=== PATIENT | male | born 1935 | race Caucasian/White ===

== ENCOUNTER 2022-03-12 11:33 | Observation (INO) ==
[2022-03-12] MEDS ORDERED: IOPAMIDOL 100 ML BOTTLE IV ONE (11:34)
--- NOTE | 2022-03-12 12:12 | Emergency Department Note ---
Altered Mental Status HPI General Chief Complaint: Altered Mental Status Stated Complaint: altered LOC and dizziness Time Seen by Provider: 03/12/22 11:37 Source: family and EMS Mode of arrival: EMS History of Present Illness HPI Narrative: Narrative: Patient presents to the emergency department with confusion, aphasia. Per family the patient woke up this morning and fell in the bathroom floor. His went to check on him and he stated that he was dizzy. She is unsure if he was in his normal state when he woke up, she states that he was last known well around 10 PM last night. She heard him fall on the ground around 9 AM. He was initially able to verbalize complaints and speak but it got to the point where he was not able to verbalize and act confused whenever questions were asked. Patient is not on any anticoagulation he does have a history of rectal cancer and chronic anemia. He is not on any treatment for his rectal cancer and is limited interventions. Related Data Home Medications Medication Instructions Recorded Confirmed calcium carbonate 600 mg-vitamin 2 cap PO 2XD 10/28/14 03/12/22 D3 10 mcg (400 unit) capsule pro-80 vitamin BID 10/28/14 11/17/21 ascorbic acid (vitamin C) 500 mg 500 mg PO Q12H 01/19/15 03/12/22 capsule,extended release cholecalciferol (vitamin D3) 25 1,000 unit PO QDAY 04/18/19 03/12/22 mcg (1,000 unit) capsule Previous Rx's Medication Instructions Recorded Wheeled walker #1 ea 06/08/21 ferrous sulfate 324 mg (65 mg 324 mg PO BID 90 days #180 tabs 01/06/22 iron) tablet,delayed release tamsulosin 0.4 mg capsule 0.4 mg PO QHS 30 days #90 caps 01/06/22 Allergies Allergy/AdvReac Type Severity Reaction Status Date / Time metronidazole Allergy Unknown Diarrhea Verified 03/12/22 11:34 moxifloxacin [From Avelox] Allergy Unknown Cramping Verified 03/12/22 11:34 of the Muscles Review of Systems ROS ROS Narrative: Narrative: Limitations: ROS unobtainable due to patients medical condition PFSH Narrative Patient History Narrative: Narrative: Medical/Surgical/Family History All Active Problems (Updated 03/12/22 @ 13:58 by Get Jiménez MD) Stroke-like symptoms (Acute) Aphasia (Acute) Medicare annual wellness visit, initial (Acute) 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 chronic kidney disease (Chronic) Chronic kidney disease (CKD) stage G3a/A1, moderately decreased glomerular filtration rate (GFR) between 45-59 mL/min/1.73 square meter and albuminuria creatinine ratio less than 30 mg/g (Chronic) Iliac artery aneurysm (Chronic) Colon cancer (Chronic) Medicare annual wellness visit, subsequent (Acute) Concussion with loss of consciousness (Acute) Laceration (Acute) Edema (Chronic) Hx of tonsillectomy (Chronic) Hx of colonoscopy (Chronic ~12/04/19) Hx of adenoidectomy (Chronic) Vitamin D deficiency (Chronic) Urethral stricture (Chronic) Seborrheic keratosis (Chronic) Rheumatic fever (Chronic) Peripheral neuropathy (Chronic) Pain in joint, ankle and foot (Chronic) Ocular migraine (Chronic) Migraine (Chronic) Hypoglycemia (Chronic) Hypocalcemia (Chronic) Hyperlipidemia (Chronic) Hematuria (Chronic) Gingivitis (Chronic) Diverticulitis of colon (Chronic) Cerumen impaction (Chronic) BPH with urinary obstruction (Chronic) Anemia (Chronic) Actinic keratosis (Chronic) Medical History Actinic keratosis 07/31/2012 Anemia chronic, mild Tsat 40% above threshold for VIN BPH with urinary obstruction 09/05/2012 Cerumen impaction Colon cancer Rectal cancer Diverticulitis of colon Edema Gingivitis Hematuria 07/31/2012 Hyperlipidemia Hypocalcemia Hypoglycemia 08/08/2012 Iliac artery aneurysm Medicare annual wellness visit, initial Medicare annual wellness visit, subsequent Migraine Ocular migraine "forever", no headache Pain in joint, ankle and foot Peripheral neuropathy Rheumatic fever 1949 Seborrheic keratosis Urethral stricture 09/05/2012 Vitamin D deficiency Surgical History Hx of adenoidectomy as a child Hx of colonoscopy (~12/04/19) 03/12/2008 Microscopic diagnosis; specimen A: colon, ascending polyp, polypectomy: Hyperplastic polyp. Specimen B: Colon, cecum polyps, polypectomy: portions of adenomatous polyp (3). Inflamed hyperplastic polyp (1). Specimen C: Colon Transverse Polyps, polypectomy: portions of adenomatous polyp (2) Hx of tonsillectomy as a child Family History father Chronic Kidney Disease Social History Smoking Status: Never smoker Alcohol Intake Frequency: holiday/special occasion only Substance Use: does not use Exam Narrative Narrative: Narrative: Vital signs noted General: Awake. Alert. No distress. HEENT: NCAT PERRL EOMI. No conjunctivitis. Membranes moist. Neck: Supple, trachea midline Cardiovascular: RRR. No murmur. No rubs. No gallops. Respiratory: No respiratory distress. Breath sounds equal. Lungs clear. Gastrointestinal: Soft. No tenderness Musculoskeletal: No pain. No soft tissue swelling. Good ROM. No signs injury Skin: Warm. Dry. No rash Neurologic: Patient appears to be alert, he does not answer any questions appropriately when asked what his name is he just looks blankly, he has 3+ strength in his bilateral lower extremities no obvious facial droop or gaze preference, when patient's arms are held up there does not appear to be any asymmetric pronator drift but the patient does not appear to follow simple commands Course Vital Signs Vital signs: Vital Signs Temperature 97.2 F 03/12/22 11:45 Pulse Rate 76 03/12/22 11:45 Respiratory Rate 16 03/12/22 11:45 Blood Pressure 126/68 03/12/22 11:45 Pulse Oximetry (%) 95 03/12/22 11:45 Oxygen Delivery Method 03/12/22 11:45 Temperature 99 F 03/12/22 22:32 Pulse Rate 69 03/12/22 22:32 Respiratory Rate 18 03/12/22 22:32 Blood Pressure 132/71 03/12/22 22:32 Pulse Oximetry (%) 94 03/12/22 22:32 Oxygen Delivery Method 03/12/22 22:32 MDM MDM Narrative Medical decision making narrative: Narrative: Patient presents to the emergency department with altered mental status given the onset of his symptoms CVA was the first diagnosis in the differential. Upon asking the family the patient is not in the window for tPA. CT scan did not show an obvious territorial infarct or hemorrhage. I did consult with Dr. Edgar of teleneurology she agrees that the patient is not in the window for tPA. Patient's blood pressure was within normal parameters. CTA of the head and neck was also without explanatory findings. The patient did not appear to have any focalizing motor symptoms mostly aphasia. After further discussion with the family offering potential MRI and additional blood work they would like the patient to be placed on hospice. The patient is already DNR comfort measures only. They state that although he did have a drastic change in his mentation today he has had a steady decline for 2 years he is not being treated for his rectal cancer. The family does not want to look for reversible infectious causes of his symptoms or other sources. Other than CVA the consideration for postictal state was considered, polypharmacy or accidental ingestion, versus occult infection. Lab Data Result diagrams: 03/12/22 12:07 03/12/22 12:07 Labs: Lab Results 03/12/22 03/12/22 03/12/22 Range/Units 12:04 12:07 12:07 WBC 10.0 (4.5-11.0) K/mcL RBC 4.56 L (4.63-6.08) M/mcL Hgb 12.3 L (13.7-17.5) g/dL Hct 38.7 L (40.1-51.0) % MCV 84.9 (80.0-100.0) fL MCH 27.0 (26.0-34.0) pg MCHC 31.8 (31.0-36.0) g/dL RDW 14.3 (11.5-14.5) % Plt Count 246 (140-440) K/mcL MPV 9.2 (8.8-12.5) fL Immature Gran % (Auto) 0.3 (0.0-0.5) % Neut % (Auto) 54.2 (38.0-78.0) % Lymph % (Auto) 35.2 (15.5-49.0) % [place] % (Auto) 7.4 (1.0-12.0) % Eos % (Auto) 2.4 (0.0-7.0) % Baso % (Auto) 0.5 (0.0-2.0) % Lymph # (Auto) 3.52 (1.50-4.80) K/mcL [place] # (Auto) 0.74 (0.10-0.90) K/mcL Eos # (Auto) 0.24 (0.00-0.70) K/mcL Baso # (Auto) 0.05 (0.00-0.30) K/mcL Immature Gran # 0.03 (0.00-0.05) K/mcl Absolute Neutrophils 5.43 (1.80-8.00) K/mcL PT (11.9-14.5) sec INR (0.9-1.1) APTT 32.9 (20.0-37.0) sec Sodium (133-145) mmol/L Potassium (3.3-5.1) mmol/L Chloride (96-108) mmol/L Carbon Dioxide (22-30) mmol/L Anion Gap (8.0-16.0) BUN (8-23) mg/dL Creatinine (0.7-1.2) mg/dL GFR Calculation Glucose (70-105) mg/dL Uric Acid (2.5-8.0) mg/dL Calcium (8.6-10.4) mg/dL Phosphorus (2.5-4.5) mg/dL Magnesium (1.6-2.5) mg/dL Total Bilirubin (0.1-1.0) mg/dL Direct Bilirubin (<0.3) mg/dL GGT (8-61) U/L AST (<40) U/L ALT (<40) U/L Alkaline Phosphatase (39-117) U/L Lactate Dehydrogenase (135-225) U/L Total Protein (5.9-8.4) gm/dL Albumin (3.2-5.2) gm/dL Globulin (2.2-3.7) gm/dL Albumin/Globulin Ratio (1.0-2.3) Triglycerides (<150) mg/dL POC Troponin I < 0.02 (0.00-0.08) 03/12/22 03/12/22 03/12/22 Range/Units 12:07 12:07 12:07 WBC (4.5-11.0) K/mcL RBC (4.63-6.08) M/mcL Hgb (13.7-17.5) g/dL Hct (40.1-51.0) % MCV (80.0-100.0) fL MCH (26.0-34.0) pg MCHC (31.0-36.0) g/dL RDW (11.5-14.5) % Plt Count (140-440) K/mcL MPV (8.8-12.5) fL Immature Gran % (Auto) (0.0-0.5) % Neut % (Auto) (38.0-78.0) % Lymph % (Auto) (15.5-49.0) % [place] % (Auto) (1.0-12.0) % Eos % (Auto) (0.0-7.0) % Baso % (Auto) (0.0-2.0) % Lymph # (Auto) (1.50-4.80) K/mcL [place] # (Auto) (0.10-0.90) K/mcL Eos # (Auto) (0.00-0.70) K/mcL Baso # (Auto) (0.00-0.30) K/mcL Immature Gran # (0.00-0.05) K/mcl Absolute Neutrophils (1.80-8.00) K/mcL PT 13.2 (11.9-14.5) sec INR 1.0 (0.9-1.1) APTT (20.0-37.0) sec Sodium 139 (133-145) mmol/L Potassium 3.8 (3.3-5.1) mmol/L Chloride 107 (96-108) mmol/L Carbon Dioxide 20 L (22-30) mmol/L Anion Gap 12.0 (8.0-16.0) BUN 15 (8-23) mg/dL Creatinine 1.3 H (0.7-1.2) mg/dL GFR Calculation 49 Glucose 108 H (70-105) mg/dL Uric Acid 5.3 (2.5-8.0) mg/dL Calcium 8.8 (8.6-10.4) mg/dL Phosphorus 2.4 L (2.5-4.5) mg/dL Magnesium 2.3 (1.6-2.5) mg/dL Total Bilirubin 0.8 0.7 (0.1-1.0) mg/dL Direct Bilirubin 0.2 < 0.2 (<0.3) mg/dL GGT 18 (8-61) U/L AST 19 20 (<40) U/L ALT 9 9 (<40) U/L Alkaline Phosphatase 96 99 (39-117) U/L Lactate Dehydrogenase 253 H (135-225) U/L Total Protein 6.7 6.6 (5.9-8.4) gm/dL Albumin 3.5 3.4 (3.2-5.2) gm/dL Globulin 3.2 3.2 (2.2-3.7) gm/dL Albumin/Globulin Ratio 1.1 (1.0-2.3) Triglycerides 95 (<150) mg/dL POC Troponin I (0.00-0.08) EKG Data EKG #1: EKG attestation: Yes I reviewed and interpreted this EKG., Yes There are no EKG findings of acute coronary syndrome and Yes This EKG will be read by convention planner EKG results narrative: EKG per my interpretation shows a sinus rhythm there is multiple PVCs normal axis no evidence of acute ischemia Discharge Plan Patient/Caregiver Discharge Instructions Pt seen by JACK SPINNER/PA only: No Clinical Impression: Stroke-like symptoms, Aphasia Activity: resume usual activities as tolerated Patient Disposition: Xfer As Outpt/Obs ([facility]) Condition: Serious Discharge Date/Time: 03/12/22 15:45
[2022-03-12 12:45] LABS: Basophils # (Auto) 0.05 K/mcL (0.00-0.30); Basophils % (Auto) 0.5 % (0.0-2.0); Eosinophils # (Auto) 0.24 K/mcL (0.00-0.70); Eosinophils % (Auto) 2.4 % (0.0-7.0); Hematocrit 38.7 % (40.1-51.0); Hemoglobin 12.3 g/dL (13.7-17.5); Lymphocytes # (Auto) 3.52 K/mcL (1.50-4.80); Lymphocytes % (Auto) 35.2 % (15.5-49.0); Mean Cell Volume 84.9 fL (80.0-100.0); Mean Corpuscular HGB Conc 31.8 g/dL (31.0-36.0); Mean Platelet Volume 9.2 fL (8.8-12.5); Monocytes # (Auto) 0.74 K/mcL (0.10-0.90); Monocytes % (Auto) 7.4 % (1.0-12.0); Neutrophils % (Auto) 54.2 % (38.0-78.0); Platelet Count 246 K/mcL (140-440); RBC 4.56 M/mcL (4.63-6.08); Red Cell Distribution Width 14.3 % (11.5-14.5)
[2022-03-12 13:02] LABS: ALT/SGPT 9 U/L (<40); AST/SGOT 19 U/L (<40); Albumin 3.5 gm/dL (3.2-5.2); Alkaline Phosphatase 96 U/L (39-117); Bilirubin,Direct 0.2 mg/dL (<0.3); Bilirubin,Total 0.8 mg/dL (0.1-1.0); Globulin 3.2 gm/dL (2.2-3.7)
[2022-03-12 13:23] LABS: Prothrombin Time 13.2 sec (11.9-14.5)
--- NOTE | 2022-03-12 13:44 | Cat Scan Report ---
CLINICAL INFORMATION: Aphasia code stroke COMPARISON: None. TECHNIQUE: 80 cc of Isovue-370 were injected intravenously , and using SmartPrep to maximize cerebral arterial opacification, 0.625 mm helical slices were obtained from the skull base through the cerebral vertex. Following reconstruction , sagittal, coronal and axial reformatted images were processed and reviewed at multiple windows and levels. 3D volume rendered and MIP images were acquired at a independent workstation. The exam was performed using radiation dose optimization techniques including, but not limited to, automated exposure control, adjustment of the mA and/or kV according to patient size and use of iterative reconstruction technique. FINDINGS: The intracranial internal carotid, vertebral, basilar, anterior, middle and posterior cerebral arteries and their branches are well-opacified and normal in contour and caliber without significant stenosis, occlusion or other pathology. Superficial/deep cerebral veins and deep venous sinuses are widely patent IMPRESSION: Normal exam Interpreted and Authenticated by: Aashish Scott 03/12/22
--- NOTE | 2022-03-12 13:45 | Cat Scan Report ---
CLINICAL INFORMATION: Neurological deficit acute stroke COMPARISON: 07/26/2018 TECHNIQUE: 2.5 mm helical slices were obtained in the skull base to vertex. Following reconstruction, axial reformatted images were reviewed at bone and parenchymal windows. The exam was performed using radiation dose optimization techniques including, but not limited to, automated exposure control, adjustment of the mA and/or kV according to patient size and use of iterative reconstruction technique. FINDINGS: The ventricles, sulci, fissures, and cisterns are symmetrically enlarged compatible moderate age-related atrophy. No extra-axial fluid collections are identified. Mild patchy chronic ischemic changes, in the deep cerebral white matter, are expected for age. There is no hemorrhage, mass effect, or edema. Bone windows show no osseous abnormality. IMPRESSION: Moderate atrophy and chronic ischemic changes in the deep cerebral white matter-expected for age. No acute findings Interpreted and Authenticated by: Aashish Scott 03/12/22
--- NOTE | 2022-03-12 13:49 | Internal Med History&Physical ---
HPI History of Present Illness Patient information: Note initiated : 03/12/22 at 1:48 pm Service Date, if different from initiated Date: [] Patient: Jose Barker a 87 y/o M admitted on for altered LOC and dizziness. Chief Complaint: [] History of present illness: Mr. Barker is a 87 year old M Patient presents to the ED with confusion weakness speech abnormalities per family. Per family he was last known normal last night at 10 and yesterday was essentially unremarkable maybe was a bit weaker than usual. However he has been having increasing progressing weakness over time given his known invasive ductal carcinoma that is been progressing and they are not pursuing treatment. His heard him fall hard onto the toilet today and when she went into see him he was for stating he was dizzy and grabbed he became more confused and she says he developed garbled speech where not only was the wrong words that he also had a hard time saying them. That is progressed for most of the day since that time, however shortly before I was in there the family said he was starting to speak clearly again but then when I started examining him he was back to an aphasia presentation. Patient has a history of chronic kidney disease chronic anemia and invasive rectal adenocarcinoma that they are not pursuing treatment for as per them and a note written by Dr. Doyle in 2019. Initial stroke work-up was started. CTA imaging was unremarkable. EKG with sinus arrhythmia. CBC unremarkable and vital signs unremarkable including a normal blood pressure, chemistry pending. After further discussion between the ER physician and the family, the family would like no more further interventions or aggressive work-up and would like to transition to hospice. Family is unable to take the patient home at this time given his confusion and feeling like he would be unsafe at home. I confirm with the family and they would just like comfort care measures only. Review of systems: Unable to obtain given altered mental state. 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 chronic kidney disease (Chronic) Chronic kidney disease (CKD) stage G3a/A1, moderately decreased glomerular filtration rate (GFR) between 45-59 mL/min/1.73 square meter and albuminuria creatinine ratio less than 30 mg/g (Chronic) Iliac artery aneurysm (Chronic) Colon cancer (Chronic) Medicare annual wellness visit, subsequent (Acute) Concussion with loss of consciousness (Acute) Laceration (Acute) Edema (Chronic) Hx of tonsillectomy (Chronic) Hx of colonoscopy (Chronic ~12/04/19) Hx of adenoidectomy (Chronic) Vitamin D deficiency (Chronic) Urethral stricture (Chronic) Seborrheic keratosis (Chronic) Rheumatic fever (Chronic) Peripheral neuropathy (Chronic) Pain in joint, ankle and foot (Chronic) Ocular migraine (Chronic) Migraine (Chronic) Hypoglycemia (Chronic) Hypocalcemia (Chronic) Hyperlipidemia (Chronic) Hematuria (Chronic) Gingivitis (Chronic) Diverticulitis of colon (Chronic) Cerumen impaction (Chronic) BPH with urinary obstruction (Chronic) Anemia (Chronic) Actinic keratosis (Chronic) Medical History Actinic keratosis 07/31/2012 Anemia chronic, mild Tsat 40% above threshold for VIN BPH with urinary obstruction 09/05/2012 Cerumen impaction Colon cancer Rectal cancer Diverticulitis of colon Edema Gingivitis Hematuria 07/31/2012 Hyperlipidemia Hypocalcemia Hypoglycemia 08/08/2012 Iliac artery aneurysm Medicare annual wellness visit, initial Medicare annual wellness visit, subsequent Migraine Ocular migraine "forever", no headache Pain in joint, ankle and foot Peripheral neuropathy Rheumatic fever 1948 Seborrheic keratosis Urethral stricture 09/05/2012 Vitamin D deficiency Surgical History Hx of adenoidectomy as a child Hx of colonoscopy (~12/04/19) 03/12/2008 Microscopic diagnosis; specimen A: colon, ascending polyp, polypectomy: Hyperplastic polyp. Specimen B: Colon, cecum polyps, polypectomy: portions of adenomatous polyp (3). Inflamed hyperplastic polyp (1). 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 other: Children-4 eating out: 1-3 times/week physical activity: none smoking status: Never smoker alcohol intake frequency: holiday/special occasion only substance use type: does not use barron/mosque: Yarsani seatbelt use: always MEDS/ALLERGIES Home Medications and Allergies Home Medications Medication Instructions Recorded Confirmed Type calcium carbonate 600 mg-vitamin 2 cap PO QDAY 10/28/14 11/17/21 History D3 10 mcg (400 unit) capsule pro-80 vitamin PO BID 10/28/14 11/17/21 History ascorbic acid (vitamin C) 500 mg 500 mg PO Q12H 01/19/15 11/17/21 History capsule,extended release cholecalciferol (vitamin D3) 25 1,000 unit PO QDAY 04/18/19 11/17/21 History mcg (1,000 unit) capsule Wheeled walker #1 ea 06/08/21 11/17/21 Rx ferrous sulfate 324 mg (65 mg 324 mg PO BID 90 days #180 tabs 01/06/22 Rx iron) tablet,delayed release tamsulosin 0.4 mg capsule 0.4 mg PO QHS 30 days #90 caps 01/06/22 Rx Allergies Allergy/AdvReac Type Severity Reaction Status Date / Time metronidazole Allergy Unknown Diarrhea Verified 03/12/22 11:34 moxifloxacin [From Avelox] Allergy Unknown Cramping Verified 03/12/22 11:34 of the Muscles EXAM Constitutional Vitals: Temp Pulse Resp BP Pulse Ox O2 Del Method 97.2 F 69 20 128/71 98 03/12/22 11:45 03/12/22 13:09 03/12/22 13:09 03/12/22 13:02 03/12/22 13:09 03/12/22 11:59 Exam: General: Awake, No acute Distress Eyes/N/T: EOMI, PERRL, Head/Neck: neck supple, normocephalic atraumatic CV: RRR, No murmurs, normal s1/s2 Pulm: Clear b/l, no wheezing/rhonchi/rales Abd: soft, nontender, +BS x4 Ext: no clubbing/cyanosis/edema Neuro: Patient moves extremities spontaneously but does not follow commands, when speaking to him the only thing he says is "yep" and does not make eye contact with me skin: warm/dry DATA Data Completed and Pending Labs: Labs from last 24 hours 03/12/22 03/12/22 03/12/22 12:07 12:07 12:07 WBC RBC Hgb Hct MCV MCH MCHC RDW Plt Count MPV Immature Gran % (Auto) Neut % (Auto) Lymph % (Auto) [place] % (Auto) Eos % (Auto) Baso % (Auto) Lymph # (Auto) [place] # (Auto) Eos # (Auto) Baso # (Auto) Immature Gran # Absolute Neutrophils PT 13.2 INR 1.0 APTT 32.9 Total Bilirubin 0.8 Direct Bilirubin 0.2 AST 19 ALT 9 Alkaline Phosphatase 96 Total Protein 6.7 Albumin 3.5 Globulin 3.2 POC Troponin I 03/12/22 03/12/22 12:07 12:04 WBC 10.0 RBC 4.56 L Hgb 12.3 L Hct 38.7 L MCV 84.9 MCH 27.0 MCHC 31.8 RDW 14.3 Plt Count 246 MPV 9.2 Immature Gran % (Auto) 0.3 Neut % (Auto) 54.2 Lymph % (Auto) 35.2 [place] % (Auto) 7.4 Eos % (Auto) 2.4 Baso % (Auto) 0.5 Lymph # (Auto) 3.52 [place] # (Auto) 0.74 Eos # (Auto) 0.24 Baso # (Auto) 0.05 Immature Gran # 0.03 Absolute Neutrophils 5.43 PT INR APTT Total Bilirubin Direct Bilirubin AST ALT Alkaline Phosphatase Total Protein Albumin Globulin POC Troponin I < 0.02 A/P Narrative A/P Narrative: A: *Strokelike symptoms (aphasia both receptive/expressive): -ABCD=4 *Encephalopathy: *Invasive rectal carcinoma: Not pursuing treatment as of 2019 -Does have bloody diarrhea chronically from this *CKD III: *Anemia, chronic: P: -Comfort care only -Patient family support Time Spent With Patient Time: Total time spent is greater than 50% in coordination of care (as documented) at patient's floor/unit and/or counseling patient: QUALITY Stroke Symptom Onset Unknown: Yes
[2022-03-12 14:12] LABS: ALT/SGPT 9 U/L (<40); AST/SGOT 20 U/L (<40); Albumin 3.4 gm/dL (3.2-5.2); Albumin/Globulin Ratio 1.1 (1.0-2.3); Alkaline Phosphatase 99 U/L (39-117); Bilirubin,Direct < 0.2 mg/dL (0-0.3); Bilirubin,Total 0.7 mg/dL (0.1-1.0); Blood Urea Nitrogen 15 mg/dL (8-23); Calcium 8.8 mg/dL (8.6-10.4); Carbon Dioxide 20 mmol/L (22-30); Chloride 107 mmol/L (96-108); Globulin 3.2 gm/dL (2.2-3.7); Glomerular Filtration Rate 49; Glucose 108 mg/dL (70-105); Lactate Dehydrogenase 253 U/L (135-225); Phosphorous 2.4 mg/dL (2.5-4.5); Triglycerides 95 mg/dL (<150); Uric Acid 5.3 mg/dL (2.5-8.0)
--- NOTE | 2022-03-12 14:37 | XRay Report ---
CLINICAL INFORMATION: Acute mental status change COMPARISON: None. TECHNIQUE: Portable FINDINGS: The heart size, mediastinum and pulmonary vessels are unremarkable. Small bibasilar infiltrates are developing. Left diaphragm mildly elevated.. There are no effusions. The bones and soft tissues are within normal limits. IMPRESSION: Small bibasilar infiltrates. Mild elevation left diaphragm Interpreted and Authenticated by: Aashish Scott 03/12/22
--- NOTE | 2022-03-12 14:41 | Cat Scan Report ---
CLINICAL INFORMATION: CVA COMPARISON: None. TECHNIQUE: 80 cc of Isovue-300 were injected intravenously followed by 40 cc of normal saline flush. Using SmartPrep, 0.625 helical slices were obtained from the thoracic aortic arch through the augustine of [place]. Following reconstruction, 2.5 mm sagittal, coronal and axial reformatted images were processed. MIPS , 3-D volume rendering and CPR images were also constructed. The exam was performed using radiation dose optimization techniques including, but not limited to, automated exposure control, adjustment of the mA and/or kV according to patient size and use of iterative reconstruction technique. FINDINGS: The thoracic aortic arch is normal diameter with minimal intimal thickening and conventional aortic branching. The brachiocephalic, both subclavian, both common, internal and external carotid and both vertebral arteries are widely patent without significant abnormality. IMPRESSION: Normal exam Interpreted and Authenticated by: Aashish Scott 03/12/22
[2022-03-12] MEDS ORDERED: morphine 4 MG/ML VIAL NEB PRN (15:46)
[2022-03-12] MEDS ORDERED: morphine 4 MG/ML VIAL IV PRN (15:46)
[2022-03-12] MEDS ORDERED: ONDANSETRON 4 MG ODT TABLET SL PRN (15:46)
[2022-03-12] MEDS ORDERED: LACTOPEROXI/GLUC OXID/POT THIO 1 EACH GEL..EA. TOPICAL PRN (15:46)
[2022-03-12] MEDS ORDERED: LORazepam 2 MG/ML VIAL IV PRN (15:46)
[2022-03-12] MEDS: DOCUSATE SODIUM 100 MG CAPSULE PO SCH (22:41)
[2022-03-12] MEDS: 0.9 % SODIUM CHLORIDE 10 ML SYRINGE IV SCH (22:41)
[2022-03-13] MEDS: 0.9 % SODIUM CHLORIDE 10 ML SYRINGE IV SCH ×3 (05:54→20:25)
--- NOTE | 2022-03-13 07:50 | EKG ---
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
--- NOTE | 2022-03-13 09:01 | Internal Med Progress Note ---
SUBJECTIVE Subjective Patient information: Note initiated : 03/13/22 at 9:00 am Service Date, if different from initiated Date: [] Patient: Jose Barker 87 y/o M admitted on 03/12/22 for altered LOC and dizziness. Chief Complaint: [] Interval history: History of present illness: Mr. Barker is a 87 year old M Patient presents to the ED with confusion weakness speech abnormalities per family. Per family he was last known normal last night at 10 and yesterday was essentially unremarkable maybe was a bit weaker than usual. However he has been having increasing progressing weakness over time given his known invasive ductal carcinoma that is been progressing and they are not pursuing treatment. His heard him fall hard onto the toilet today and when she went into see him he was for stating he was dizzy and grabbed he became more confused and she says he developed garbled speech where not only was the wrong words that he also had a hard time saying them. That is progressed for most of the day since that time, however shortly before I was in there the family said he was starting to speak clearly again but then when I started examining him he was back to an aphasia presentation. Patient has a history of chronic kidney disease chronic anemia and invasive rectal adenocarcinoma that they are not pursuing treatment for as per them and a note written by Dr. Doyle in 2019. Initial stroke work-up was started. CTA imaging was unremarkable. EKG with sinus arrhythmia. CBC unremarkable and vital signs unremarkable including a normal blood pressure, chemistry pending. After further discussion between the ER physician and the family, the family would like no more further interventions or aggressive work-up and would like to transition to hospice. Family is unable to take the patient home at this time given his confusion and feeling like he would be unsafe at home. I confirm with the family and they would just like comfort care measures only. Constitutional Vitals: Vital Signs Temp Pulse Resp BP Pulse Ox O2 Del Method 99 F 69 18 132/71 94 03/12/22 22:32 03/12/22 22:32 11 22:32 11 22:32 03/12/22 22:32 03/12/22 22:32 Period Temp Pulse Resp BP Sys/Crowell Pulse Ox O2 Del Method O2 Flow Rate Last 24 Hr 97.2 F-99 F 58-113 14-32 120-134/64-88 94-100 Room Air-Room Air Intake and Output 03/12/22 03/13/22 03/13/22 22:59 05:59 13:59 Output Total Balance Weight Intake & Output: Intake & Output 03/12/22 03/13/22 03/13/22 22:59 05:59 13:59 Output Total Balance Weight Output: # of times incontinent of urine Other: Urine Color Urine Odor Stool Size Stool Color Stool Consistency # of times incontinent of Bowels Exam: General: Awake, No acute Distress Eyes/N/T: EOMI, , Head/Neck: neck supple, CV: RRR, No murmurs, Pulm: Clear b/l, no wheezing/rhonchi/rales Abd: soft, nontender, +BS x4 Ext: no clubbing/cyanosis/edema Neuro: Patient moves extremities spontaneously, mentation much improved, answers questions appropriately skin: warm/dry OBJ DATA Labs CBC & Chem 7: 03/12/22 12:07 03/12/22 12:07 Labs: Abnormal Lab Results 03/12/22 03/12/22 12:07 12:07 RBC 4.56 L Hgb 12.3 L Hct 38.7 L Carbon Dioxide 20 L Creatinine 1.3 H Glucose 108 H Phosphorus 2.4 L Lactate Dehydrogenase 253 H Meds: Medications Docusate Sodium (Docusate Sodium 100 Mg Capsule) 100 mg PO BID [facility] Last Admin: 03/12/22 22:41 Dose: 100 mg Glucose Oxid/Lactoperoxid/Muramidas (Lactoperoxi/Gluc Oxid/Pot Thio 1 Each Gel..Ea.) 1 each TOPICAL PRN PRN PRN Reason: Dry Mouth Lorazepam (Lorazepam 2 Mg/Ml Vial) 0 mg IV Q1HP PRN; Protocol PRN Reason: ANXIETY/SEDATION Morphine Sulfate (Morphine 4 Mg/Ml Vial) 2 - 6 mg IV Q1HP PRN; Protocol PRN Reason: Per Pain Protocol Morphine Sulfate (Morphine 4 Mg/Ml Vial) 4 mg NEB Q4HP PRN PRN Reason: Shortness Of Breath Ondansetron HCl (Ondansetron 4 Mg Odt Tablet) 4 mg SL Q4HP PRN; Protocol PRN Reason: Nausea And Vomiting Sodium Chloride (0.9 % Sodium Chloride 10 Ml Syringe) 10 ml IV Q8 [facility] Last Admin: 03/13/22 05:54 Dose: 10 ml A/P Narrative A/P Narrative: A: *Strokelike symptoms (aphasia both receptive/expressive): -ABCD=4 *Encephalopathy: *Invasive rectal carcinoma: Not pursuing treatment as of 2019 -Does have bloody diarrhea chronically from this *CKD III: *Anemia, chronic: P: -Comfort care only -Patient family support Time Spent With Patient Time: Total time spent is greater than 50% in coordination of care (as documented) at patient's floor/unit and/or counseling patient: QUALITY Stroke Symptom Onset Unknown: Yes VTE Deep Vein Thrombosis/Pulmonary Embolism Present on Admission: No
[2022-03-13] MEDS: DOCUSATE SODIUM 100 MG CAPSULE PO SCH ×2 (10:49→19:33)
--- NOTE | 2022-03-13 14:55 | Internal Med Progress Note ---
SUBJECTIVE Subjective Patient information: Note initiated : 03/13/22 at 2:53 pm Service Date, if different from initiated Date: [] Patient: Jose Barker 87 y/o M admitted on 03/12/22 for altered LOC and dizziness. Chief Complaint: [] Interval history: 03/14 The patient's speech has improved significantly, now near his baseline. He did have some episodes of confusion overnight, still unsteady on his feet. Discussed with the patient and his , they wish to continue comfort cares however are interested in low intensity rehab if the patient would qualify. They do not want any further work-up for possible stroke. PT and OT ordered. Physical exam Head: Atraumatic, normal inspection. Eyes: normal appearance, no scleral icterus. Neck: full ROM Respiratory: no respiratory distress. Cardiovascular: normal rate and rhythm, S1, S2. GI/Abdominal: soft, nontender, no guarding. Extremities: full range of motion, nontender. Neurological: CN II-XII intact, intact motor, intact sensation. Psychiatric: normal mood. Skin: warm, normal color Constitutional Vitals: Vital Signs Temp Pulse Resp BP Pulse Ox O2 Del Method 97.7 F 59 L 16 114/75 96 03/13/22 08:00 03/13/22 08:00 03/13/22 13:01 03/13/22 08:00 03/13/22 08:00 03/13/22 08:00 Period Temp Pulse Resp BP Sys/Crowell Pulse Ox O2 Del Method O2 Flow Rate Last 24 Hr 97.7 F-99 F 59-113 14-18 114-132/71-88 94-96 Room Air-Room Air Intake and Output 03/13/22 03/13/22 03/13/22 05:59 13:59 21:59 Output Total Balance Intake & Output: Intake & Output 03/13/22 03/13/22 03/13/22 05:59 13:59 21:59 Output Total Balance Output: # of times incontinent of urine Other: Urine Odor Stool Size Moderate Stool Color Black Stool Consistency Loose # of times incontinent of Bowels OBJ DATA Labs CBC & Chem 7: 03/12/22 12:07 03/12/22 12:07 Labs: Abnormal Lab Results 03/12/22 03/12/22 12:07 12:07 RBC 4.56 L Hgb 12.3 L Hct 38.7 L Carbon Dioxide 20 L Creatinine 1.3 H Glucose 108 H Phosphorus 2.4 L Lactate Dehydrogenase 253 H Meds: Medications Docusate Sodium (Docusate Sodium 100 Mg Capsule) 100 mg PO BID [facility] Last Admin: 03/13/22 10:49 Dose: Not Given Glucose Oxid/Lactoperoxid/Muramidas (Lactoperoxi/Gluc Oxid/Pot Thio 1 Each G el..Ea.) 1 each TOPICAL PRN PRN PRN Reason: Dry Mouth Lorazepam (Lorazepam 2 Mg/Ml Vial) 0 mg IV Q1HP PRN; Protocol PRN Reason: ANXIETY/SEDATION Morphine Sulfate (Morphine 4 Mg/Ml Vial) 2 - 6 mg IV Q1HP PRN; Protocol PRN Reason: Per Pain Protocol Morphine Sulfate (Morphine 4 Mg/Ml Vial) 4 mg NEB Q4HP PRN PRN Reason: Shortness Of Breath Ondansetron HCl (Ondansetron 4 Mg Odt Tablet) 4 mg SL Q4HP PRN; Protocol PRN Reason: Nausea And Vomiting Sodium Chloride (0.9 % Sodium Chloride 10 Ml Syringe) 10 ml IV Q8 [facility] Last Admin: 03/13/22 14:15 Dose: Not Given A/P Narrative A/P Narrative: A: *Generalized weakness/gait instability *Resolved strokelike symptoms (aphasia both receptive/expressive): *Resolving encephalopathy: *Invasive rectal carcinoma: Not pursuing treatment as of 2019 -Does have bloody diarrhea chronically from this *CKD III: *Anemia, chronic: P: -Comfort care -Delirium bundle -PT and OT -CM for discharge planning Time Spent With Patient Time: Total time spent is greater than 50% in coordination of care (as documented) at patient's floor/unit and/or counseling patient: QUALITY Stroke Symptom Onset Unknown: Yes VTE Deep Vein Thrombosis/Pulmonary Embolism Present on Admission: No
[2022-03-14] MEDS: 0.9 % SODIUM CHLORIDE 10 ML SYRINGE IV SCH ×3 (05:14→20:13)
[2022-03-14] MEDS: DOCUSATE SODIUM 100 MG CAPSULE PO SCH ×2 (08:39→19:54)
[2022-03-15] MEDS: 0.9 % SODIUM CHLORIDE 10 ML SYRINGE IV SCH (05:20)
--- NOTE | 2022-03-15 08:49 | Discharge Summary ---
Discharge Provider Provider IMPORTANT FOLLOW-UP INFORMATION FOR PCP: Patient information: Note initiated : 03/15/22 at 8:46 am Service Date, if different from initiated Date: [] Patient: Jose Barker 87 y/o M admitted on 03/12/22 for altered LOC and dizziness. Chief Complaint: [] Date of admission: 03/12/22 15:45 Discharge date: 03/15/22 Primary care physician: Fermin Carney PA-C Consults: 03/12/22 Consult to Physician [CONS] Stat Comment: Consulting Provider: Fab Marie Reason For Exam: Physician to Consult 03/12/22 11:56 Consult to Physician [CONS] Stat Comment: Consulting Provider: [facility] Reason For Exam: Physician to Consult 03/14/22 07:58 Consult to Physician [CONS] Routine Comment: snf referral Consulting Provider: [facility] Reymundo Reason For Exam: Physician to Consult COURSE Hospital Course Hospital course: Mr. Barker is a 87 year old M Patient presents to the ED with confusion weakness speech abnormalities per family. Per family he was last known normal last night at 10 and yesterday was essentially unremarkable maybe was a bit weaker than usual. However he has been having increasing progressing weakness over time given his known invasive ductal carcinoma that is been progressing and they are not pursuing treatment. His heard him fall hard onto the toilet today and when she went into see him he was for stating he was dizzy and grabbed he became more confused and she says he developed garbled speech where not only was the wrong words that he also had a hard time saying them. That is progressed for most of the day since that time, however shortly before I was in there the family said he was starting to speak clearly again but then when I started examining him he was back to an aphasia presentation. Patient has a history of chronic kidney disease chronic anemia and invasive rectal adenocarcinoma that they are not pursuing treatment for as per them and a note written by Dr. Doyle in 2019. Initial stroke work-up was started. CTA imaging was unremarkable. EKG with sinus arrhythmia. CBC unremarkable and vital signs unremarkable including a normal blood pressure, chemistry pending. After further discussion between the ER physician and the family, the family would like no more further interventions or aggressive work-up and would like to transition to hospice. Family is unable to take the patient home at this time given his confusion and feeling like he would be unsafe at home. 03/14 The patient's speech has improved significantly, now near his baseline. He did have some episodes of confusion overnight, still unsteady on his feet. Discussed with the patient and his , they wish to continue comfort cares however are interested in low intensity rehab if the patient would qualify. They do not want any further work-up for possible stroke. PT and OT ordered. 03/15 Significant events overnight, patient has significantly improved speech since admission. Discharge to low intensity rehab at a assisted facility. The patient is not on an antiplatelet due to chronic bleeding from the rectal carcinoma, also did not start a statin due to decreased life expectancy. I resumed the patient's prior home medications at discharge. Physical exam Head: Atraumatic, normal inspection. Eyes: normal appearance, no scleral icterus. Neck: full ROM Respiratory: no respiratory distress. Cardiovascular: normal rate and rhythm, S1, S2. GI/Abdominal: soft, nontender, no guarding. Extremities: full range of motion, nontender. Neurological: CN II-XII intact, intact motor, intact sensation. Psychiatric: normal mood. Skin: warm, normal color Discharge diagnosis: Aphasia likely secondary to stroke Time Spent with Patient Time attestation: Total time spent providing and/or coordinating discharge services: Time spent: Greater than 30 minutes EXAM Constitutional Vitals: Temp Pulse Resp BP Pulse Ox O2 Del Method 97.7 F 72 16 122/82 94 03/15/22 08:05 03/15/22 08:05 03/15/22 08:05 03/15/22 08:05 03/15/22 08:05 03/15/22 08:05 Discharge Plan Patient/Caregiver Discharge Instructions Activity: resume usual activities as tolerated Diet: Regular Diet Prescriptions: Continued tamsulosin 0.4 mg capsule 0.4 mg PO QHS 30 Days Qty: 90 1RF ferrous sulfate 324 mg (65 mg iron) tablet,delayed release 324 mg (65 mg iron) tablet,delayed release (DR/EC) 324 mg PO BID 90 Days Qty: 180 1RF calcium carbonate-vitamin D3 600 mg(1,500mg) -400 unit capsule 2 cap PO 2XD pro-80 vitamin BID ascorbic acid (vitamin C) 500 mg capsule, extended release 500 mg PO Q12H cholecalciferol (vitamin D3) 1,000 unit capsule 1,000 unit PO QDAY No Action (DME) Wheeled walker See Rx Instructions .Route .MEDSUPPLY Qty: 1 0RF Rx Instructions: As directed Other Ambulatory Orders: OT Discharge Order (Routine) Location: None Selected Ordered By: Riccardo Young Physical Therapy at Discharge - General (Routine) Location: None Selected Ordered By: Riccardo Young Follow Up Plan Follow up with: Fermin Carney PA-C [Primary Care Provider] - Patient Disposition: Xfer SNF Prognosis: Undetermined Rehab Potential: Fair I certify that the patient requires SNF services: Yes Overall status at discharge: patient is progressing back to baseline Discharge Orders: Discharge Order (Routine); Ordered 03/15/22 Ordered By: Riccardo Young QUALITY VTE Deep Vein Thrombosis/Pulmonary Embolism Present on Admission: No
[2022-03-15] MEDS: DOCUSATE SODIUM 100 MG CAPSULE PO SCH (09:48)
== END 2022-03-15 12:45 ==
LOC: ED 11:33 → INTOOBSV 15:45 → MEDSUR 15:45
PROVIDERS: ADMIT Internal Medicine; ATTEND Internal Medicine